=== PATIENT | female | born 1935 | race Caucasian/White ===

== ENCOUNTER 2017-08-22 11:28 | Emergency (ER) | payer MEDICARE, MEDICAID ==
[~2017-08-22] VITALS: Ht 152.4 cm; Wt 74.8 kg
[~2017-08-22 11:28] MED LIST: ACET325T38 PO; ALBU8.5H2 IH; ALMG355B PO; CARV12.53 PO; CYAN100014 PO; FOLI1TAB24 PO; GUAI-613 PO; LISI-597 PO; MAGN-47 PO; MTP25TSR PO; SERT25TA PO
--- OUTSIDE RECORDS SUMMARY | 2017-08-22 11:34 | XMS REPORT ---
Author MICHELLE Barraza Organization [employer] Address Unknown Phone Unavailable Care Team Providers Care Supervisor Reclamation Name Role Phone MICHELLE HERNANDEZ CP Unavailable Allergies No Known Allergies Problems Problem Type Condition ICD-9 Code Onset Dates Condition Status Assessment Depression 311 Active Assessment Hyperlipidemia 272.4 Active Assessment CKD (chronic kidney disease) stage 3, GFR 30-59 ml/min 585.3 Active Problem Hyperlipidemia 272.4 Active Problem CKD (chronic kidney disease) stage 3, GFR 30-59 ml/min 585.3 Active Problem Hypertension 401.9 Active Problem Essential hypertension, benign 401.1 Active Assessment Hypertension 401.9 Active Problem COPD (chronic obstructive pulmonary disease) 496 Active Problem Depression 311 Active Medications No Known Medications Procedures Procedure Coding System Code Date Stable Visit (10 minutes) CPT-4 51641 Jul 12, 2015 Results No Known Results Summary Purpose eClinicalWorks Submission
--- OUTSIDE RECORDS SUMMARY | 2017-08-22 11:34 | XMS REPORT ---
Author Author MICHELLE HERNANDEZ [facility] Address [address] [place] [address] Care Team Providers Care Admissions Director Name Role Phone MICHELLE HERNANDEZ Unavailable PROBLEMS Type Condition ICD9-CM Code PMB39-SY Code Onset Dates Condition Status SNOMED Code Problem Other iron deficiency anemia D50.8 Active 89557288 Problem Hyperlipidemia, unspecified hyperlipidemia type E78.5 Active 28156415 Problem Essential hypertension I10 Active 39708708 Problem Chronic obstructive pulmonary disease, unspecified COPD type J44.9 Active 03024018 Problem CKD (chronic kidney disease) stage 3, GFR 30-59 ml/min N18.3 Active 883645593 Problem Depression F32.9 Active 37751941 ALLERGIES Unknown Allergies SOCIAL HISTORY No smoking Hx information available PLAN OF CARE VITAL SIGNS MEDICATIONS Medication Instructions Dosage Frequency Start Date End Date Duration Status Lisinopril 40 mg Orally Once a day 1 tablet 24h 30 days Active RESULTS No Results PROCEDURES No Known procedures IMMUNIZATIONS No Known Immunizations
--- OUTSIDE RECORDS SUMMARY | 2017-08-22 11:34 | XMS REPORT ---
Author MICHELLE Barraza [facility] [employer] Address Unknown Phone Unavailable Care Team Providers Care Transplant Rn Name Role Phone MICHELLE HERNANDEZ CP Unavailable Allergies No Known Allergies Problems Problem Type Condition Code Onset Dates Condition Status Problem Depression 311 Active Problem CKD (chronic kidney disease) stage 3, GFR 30-59 ml/min 585.3 Active Problem COPD (chronic obstructive pulmonary disease) 496 Active Problem Essential hypertension, benign 401.1 Active Problem Essential hypertension I10 Active Problem Hyperlipidemia, unspecified hyperlipidemia type E78.5 Active Problem Depression F32.9 Active Problem Hypertension 401.9 Active Problem Hyperlipidemia 272.4 Active Problem CKD (chronic kidney disease) stage 3, GFR 30-59 ml/min N18.3 Active Problem Chronic obstructive pulmonary disease, unspecified COPD type J44.9 Active Medications Medication Code System Code Instructions Start Date End Date Status Dosage Tylenol [facility] [address]-49 325 MG Orally every 4 hours 2 tablets as needed Milk of Magnesia [facility] [address]-20 400 MG/5ML Orally Once a day 30 ml as needed Lisinopril [facility] 54846866023 40 MG TAKE 1 TABLET BY MOUTH DAILY Ondansetron HCl [facility] [address]-58 4 MG Orally every 8 hours, PRN 0.5 tablet as needed Folic Acid [facility] [address]-36 1 MG Orally Once a day 1 tablet Michelle-Tussin [facility] [address]-02 100 MG/5ML Orally every 4 hrs 5 ml as needed ProAir HFA [facility] [address]-83 108 (90 Base) MCG/ACT Inhalation every 4 hrs 1 puff as needed Zoloft [facility] [address]-84 50 mg Orally Once a day Jul 03, 2016 1 tablet Oxybutynin Chloride [facility] [address]-83 5 MG Orally Twice a day 1 tablet Metoprolol Succinate ER [facility] 68250185380 50 MG TAKE 1 TABLET BY MOUTH DAILY Prozac [facility] [address]-06 20 mg Orally Once a day February 14, 2016 1 capsule in the morning Mylanta [facility] 96059-[address]36 200-200-20 MG/5ML Orally every 6 hours as needed 10 ml as needed Results No Known Results Summary Purpose eClinicalWorks Submission
--- OUTSIDE RECORDS SUMMARY | 2017-08-22 11:34 | XMS REPORT ---
Author MICHELLE Barraza Organization [employer] Address Unknown Phone Unavailable Care Team Providers Care Lottery Manager Name Role Phone MICHELLE HERNANDEZ CP Unavailable [...] Instructions Start Date End Date Status Dosage Milk of Magnesia [facility] [address]-39 400 MG/5ML Orally Once a day 30 ml as needed Mylanta [facility] [address]27-78147 200-200-20 MG/5ML Orally every 6 hours as needed 10 ml as needed Ondansetron HCl [facility] [address]-73 4 MG Orally every 8 hours, PRN 0.5 tablet as needed Lisinopril [facility] 44801325950 40 MG TAKE 1 TABLET BY MOUTH DAILY Michelle-Tussin [facility] [address]-86 100 MG/5ML Orally every 4 hrs 5 ml as needed Folic Acid [facility] [address]-18 1 MG Orally Once a day 1 tablet Tylenol [facility] [address]-77 325 MG Orally every 4 hours 2 tablets as needed ProAir HFA [facility] [address]-51 108 (90 Base) MCG/ACT Inhalation every 4 hrs 1 puff as needed Metoprolol Succinate ER [facility] 99243161577 50 MG TAKE 1 TABLET BY MOUTH DAILY Prozac [facility] [address]-15 20 mg Orally Once a day February 14, 2016 1 capsule in the morning Results No Known Results Summary Purpose eClinicalWorks Submission
--- OUTSIDE RECORDS SUMMARY | 2017-08-22 11:34 | XMS REPORT ---
Author Author MICHELLE HERNANDEZ Organization [employer] Address Unknown Phone Unavailable Care Team Providers Care Portfolio Architect Name Role Phone MICHELLE HERNANDEZ CP Unavailable Allergies No Known Allergies Problems Problem Type Condition Code Onset Dates Condition Status Problem Depression 311 Active Problem CKD (chronic kidney disease) stage 3, GFR 30-59 ml/min 585.3 Active Problem COPD (chronic obstructive pulmonary disease) 496 Active Problem Essential hypertension I10 Active Problem Hyperlipidemia, unspecified hyperlipidemia type E78.5 Active Problem Depression F32.9 Active Problem Hypertension 401.9 Active Problem Hyperlipidemia 272.4 Active Problem CKD (chronic kidney disease) stage 3, GFR 30-59 ml/min N18.3 Active Problem Chronic obstructive pulmonary disease, unspecified COPD type J44.9 Active Assessment Hyperlipidemia, unspecified hyperlipidemia type E78.5 Active Assessment Essential hypertension I10 Active Assessment Chronic obstructive pulmonary disease, unspecified COPD type J44.9 Active Assessment Depression F32.9 Active Assessment CKD (chronic kidney disease) stage 3, GFR 30-59 ml/min N18.3 Active Problem Essential hypertension, benign 401.1 Active Medications No Known Medications Procedures Procedure Coding System Code Date Stable Visit (10 minutes) CPT-4 75582 Nov 08, 2015 Results No Known Results Summary Purpose eClinicalWorks Submission
--- OUTSIDE RECORDS SUMMARY | 2017-08-22 11:34 | XMS REPORT ---
Author Author MICHELLE HERNANDEZ [facility] Address [address] [place] [address] Care Team Providers Care Electronics Manufacturer Name Role Phone MICHELLE HERNANDEZ Unavailable PROBLEMS Type Condition ICD9-CM Code LNV41-HA Code Onset Dates Condition Status SNOMED Code Problem COPD (chronic obstructive pulmonary disease) 496 Active 83391662 Problem Hyperlipidemia 272.4 Active 78782404 Problem CKD (chronic kidney disease) stage 3, GFR 30-59 ml/min 585.3 Active 023183766 Assessment Adjustment disorder with depressed mood F43.21 Jul, Active 574348329 Problem Essential hypertension, benign 401.1 Active 7158211 Problem Depression 311 Active 88738866 Problem Depression F32.9 Active 10652232 Problem Essential hypertension I10 Active 97333152 Problem Chronic obstructive pulmonary disease, unspecified COPD type J44.9 Active 99427101 Problem Hypertension 401.9 Active 81322318 Problem Hyperlipidemia, unspecified hyperlipidemia type E78.5 Active 31248078 Problem CKD (chronic kidney disease) stage 3, GFR 30-59 ml/min N18.3 Active 945784930 ALLERGIES Unknown Allergies SOCIAL HISTORY No smoking Hx information available PLAN OF CARE VITAL SIGNS MEDICATIONS Medication Instructions Dosage Frequency Start Date End Date Duration Status Lisinopril 40 MG TAKE 1 TABLET BY MOUTH DAILY 30 Active Zoloft 50 mg Orally Once a day 1 tablet 24h Jul, Active Ondansetron HCl 4 MG Orally every 8 hours, PRN 0.5 tablet as needed Active Folic Acid 1 MG Orally Once a day 1 tablet 24h Active Tylenol 325 MG Orally every 4 hours 2 tablets as needed 4h Active Metoprolol Succinate ER 50 MG TAKE 1 TABLET BY MOUTH DAILY 30 Active ProAir HFA 108 (90 Base) MCG/ACT Inhalation every 4 hrs 1 puff as needed 4h Active Mylanta 200-200-20 MG/5ML Orally every 6 hours as needed 10 ml as needed Active Prozac 20 mg Orally Once a day 1 capsule in the morning 24h Jan, Active Milk of Magnesia 400 MG/5ML Orally Once a day 30 ml as needed 24h Active Michelle-Tussin 100 MG/5ML Orally every 4 hrs 5 ml as needed 4h Active RESULTS No Results PROCEDURES Procedure Date Ordered Related Diagnosis Body Site [facility] VISIT ESTABLISHED PATIENT Jul 03, 2016 Office Visit, Est Pt., Level 3 Jul 03, 2016 IMMUNIZATIONS No Known Immunizations
--- OUTSIDE RECORDS SUMMARY | 2017-08-22 11:34 | XMS REPORT ---
Author MICHELLE Barraza Organization [employer] Address Unknown Phone Unavailable Care Team Providers Care Online Program Coordinator Name Role Phone MICHELLE HERNANDEZ CP Unavailable [...] Instructions Start Date End Date Status Dosage Cyanocobalamin [facility] [address]-76 1000 MCG Orally Once a day [address] [facility] [address]-27 1 MG Orally Once a day [address] [facility] 56668-[address]3 200-200-20 MG/5ML Orally Four times a day 10 ml as needed ProAir HFA [facility] [address]-29 108 (90 Base) MCG/ACT Inhalation every 4 hrs 1 puff as needed Michelle-Tussin [facility] [address]-48 100 MG/5ML Orally every 4 hrs 5 ml as needed Metoprolol Succinate ER [facility] [address]-54 50 MG Orally Once a day [address] [facility] [address]-16 4 MG Orally 3 times a day 0.5 tablet as needed Tylenol [facility] [address]-68 325 MG Orally every 4 hours 2 tablets as needed Milk of Magnesia [facility] [address]-07 400 MG/5ML Orally Once a day 30 ml as needed Prozac [facility] [address]-87 20 mg Orally Once a day February 14, 2016 1 capsule in the morning Lisinopril [facility] [address]-13 40 MG Orally Once a day 1 tablet Results No Known Results Summary Purpose eClinicalWorks Submission
--- OUTSIDE RECORDS SUMMARY | 2017-08-22 11:34 | XMS REPORT ---
Author MICHELLE Barraza Organization [employer] Address Unknown Phone Unavailable Care Team Providers Care Form Grader Name Role Phone MICHELLE HERNANDEZ CP Unavailable [...] Instructions Start Date End Date Status Dosage Zoloft [facility] [address]-90 100 MG Orally Once a day Jul 03, 2016 1 tablet Results No Known Results Summary Purpose eClinicalWorks Submission
--- OUTSIDE RECORDS SUMMARY | 2017-08-22 11:34 | XMS REPORT ---
Author Author MICHELLE HERNANDEZ Organization [employer] Address Unknown Phone Unavailable Care Team Providers Care Equipment Maintenance Tech Name Role Phone MICHELLE HERNANDEZ CP Unavailable Allergies No Known Allergies Problems Problem Type Condition Code Onset Dates Condition Status Problem Hyperlipidemia 272.4 Active Problem CKD (chronic kidney disease) stage 3, GFR 30-59 ml/min 585.3 Active Problem Hypertension 401.9 Active Problem Essential hypertension, benign 401.1 Active Assessment CKD (chronic kidney disease), stage 3 (moderate) N18.3 Active Problem COPD (chronic obstructive pulmonary disease) 496 Active Problem Depression 311 Active Medications No Known Medications Procedures Procedure Coding System Code Date Stable Visit (10 minutes) CPT-4 95808 Sep 13, 2015 Results No Known Results Summary Purpose eClinicalWorks Submission
--- OUTSIDE RECORDS SUMMARY | 2017-08-22 11:35 | XMS REPORT ---
Author Author MICHELLE HERNANDEZ [facility] Address [address] [place] [address] Care Team Providers Care Laundry Machine Operator Name Role Phone MICHELLE HERNANDEZ Unavailable PROBLEMS Type Condition ICD9-CM Code [id number] Code Onset Dates Condition Status SNOMED Code Problem Other iron deficiency anemia D50.8 Active 83671314 Problem Hyperlipidemia, unspecified hyperlipidemia type E78.5 Active 71228630 Problem Essential hypertension I10 Active 74450895 Problem Chronic obstructive pulmonary disease, unspecified COPD type J44.9 Active 51465809 Problem CKD (chronic kidney disease) stage 3, GFR 30-59 ml/min N18.3 Active 360959754 Problem Depression F32.9 Active 60122771 ALLERGIES Unknown Allergies SOCIAL HISTORY No smoking Hx information available PLAN OF CARE Activity Details Follow Up 2 Months Reason: VITAL SIGNS MEDICATIONS No Known Medications RESULTS No Results PROCEDURES Procedure Date Ordered Related Diagnosis Body Site Minor complication (15 mins) Dec 26, 2016 IMMUNIZATIONS No Known Immunizations
--- OUTSIDE RECORDS SUMMARY | 2017-08-22 11:35 | XMS REPORT ---
Author Author MICHELLE HERNANDEZ [facility] Address [address] [place] [address] Care Team Providers Care Search Coordinator Name Role Phone MICHELLE HERNANDEZ Unavailable PROBLEMS Type Condition ICD9-CM Code ZMD15-RK Code Onset Dates Condition Status SNOMED Code Problem Other iron deficiency anemia D50.8 Active 08318467 Problem Hyperlipidemia, unspecified hyperlipidemia type E78.5 Active 45935144 Problem Essential hypertension I10 Active 92712793 Problem Chronic obstructive pulmonary disease, unspecified COPD type J44.9 Active 45795099 Problem CKD (chronic kidney disease) stage 3, GFR 30-59 ml/min N18.3 Active 202597989 Problem Depression F32.9 Active 27161951 ALLERGIES Unknown Allergies SOCIAL HISTORY No smoking Hx information available PLAN OF CARE VITAL SIGNS MEDICATIONS Medication Instructions Dosage Frequency Start Date End Date Duration Status Zoloft 100 mg Orally Once a day 1 1/2 tablets 24h Jul, 30 days Active RESULTS No Results PROCEDURES No Known procedures IMMUNIZATIONS No Known Immunizations
--- OUTSIDE RECORDS SUMMARY | 2017-08-22 11:35 | XMS REPORT ---
Author Author MICHELLE HERNANDEZ Organization [facility] Address [address] [place] [address] Care Team Providers Care Porcelain Technician Name Role Phone MICHELLE HERNANDEZ Unavailable PROBLEMS Type Condition ICD9-CM Code GTV82-PQ Code Onset Dates Condition Status SNOMED Code Problem COPD (chronic obstructive pulmonary disease) 496 Active 15500903 Problem Hyperlipidemia 272.4 Active 80868900 Problem CKD (chronic kidney disease) stage 3, GFR 30-59 ml/min 585.3 Active 471958203 Problem Essential hypertension, benign 401.1 Active 4024407 Problem Depression 311 Active 30803840 Problem Depression F32.9 Active 07198805 Problem Essential hypertension I10 Active 45527207 Problem Chronic obstructive pulmonary disease, unspecified COPD type J44.9 Active 87389921 Problem Hypertension 401.9 Active 28716149 Problem Hyperlipidemia, unspecified hyperlipidemia type E78.5 Active 53267182 Problem CKD (chronic kidney disease) stage 3, GFR 30-59 ml/min N18.3 Active 264089602 ALLERGIES Unknown Allergies SOCIAL HISTORY No smoking Hx information available PLAN OF CARE VITAL SIGNS MEDICATIONS Medication Instructions Dosage Frequency Start Date End Date Duration Status Zoloft 100 MG Orally Once a day 1 1/2 tablets 24h Jul, 30 days Active Amlodipine Besylate 10 mg Orally Once a day 1 tablet 24h Aug, 30 day(s) Active RESULTS No Results PROCEDURES No Known procedures IMMUNIZATIONS No Known Immunizations
--- OUTSIDE RECORDS SUMMARY | 2017-08-22 11:35 | XMS REPORT ---
Author MICHELLE Barraza Organization [employer] Address Unknown Phone Unavailable Care Team Providers Care Paint Spray Tender Name Role Phone MICHELLE HERNANDEZ CP Unavailable [...] disease, unspecified COPD type J44.9 Active Medications No Known Medications Results No Known Results Summary Purpose eClinicalWorks Submission
--- OUTSIDE RECORDS SUMMARY | 2017-08-22 11:35 | XMS REPORT ---
Author Author MICHELLE HERNANDEZ [facility] Address [address] [place] [address] Care Team Providers Care Bag Maker Name Role Phone MICHELLE HERNANDEZ Unavailable PROBLEMS Type Condition ICD9-CM Code XEE35-OP Code Onset Dates Condition Status SNOMED Code Problem COPD (chronic obstructive pulmonary disease) 496 Active 99048407 Problem Hyperlipidemia 272.4 Active 16292091 Problem CKD (chronic kidney disease) stage 3, GFR 30-59 ml/min 585.3 Active 061319450 Problem Essential hypertension, benign 401.1 Active 5771333 Problem Depression 311 Active 33627031 Problem Depression F32.9 Active 97842834 Problem Essential hypertension I10 Active 86748989 Problem Chronic obstructive pulmonary disease, unspecified COPD type J44.9 Active 70008880 Problem Hypertension 401.9 Active 07567193 Problem Hyperlipidemia, unspecified hyperlipidemia type E78.5 Active 99012335 Problem CKD (chronic kidney disease) stage 3, GFR 30-59 ml/min N18.3 Active 276203238 ALLERGIES Unknown Allergies SOCIAL HISTORY No smoking Hx information available PLAN OF CARE VITAL SIGNS MEDICATIONS Unknown Medications RESULTS No Results PROCEDURES No Known procedures IMMUNIZATIONS No Known Immunizations
--- OUTSIDE RECORDS SUMMARY | 2017-08-22 11:35 | XMS REPORT ---
Author MICHELLE Barraza Organization [employer] Address Unknown Phone Unavailable Care Team Providers Care Dermatology Procedural Physician Name Role Phone MICHELLE HERNANDEZ CP Unavailable Allergies No Known Allergies Problems Problem Type Condition Code Onset Dates Condition Status Problem Depression 311 Active Problem CKD (chronic kidney disease) stage 3, GFR 30-59 ml/min 585.3 Active Problem COPD (chronic obstructive pulmonary disease) 496 Active Assessment Acute viral conjunctivitis of both eyes B30.9 Active Problem Essential hypertension, benign 401.1 Active Problem Essential hypertension I10 Active Problem Hyperlipidemia, unspecified hyperlipidemia type E78.5 Active Problem Depression F32.9 Active Problem Hypertension 401.9 Active Problem Hyperlipidemia 272.4 Active Problem CKD (chronic kidney disease) stage 3, GFR 30-59 ml/min N18.3 Active Problem Chronic obstructive pulmonary disease, unspecified COPD type J44.9 Active Medications No Known Medications Procedures Procedure Coding System Code Date Stable Visit (10 minutes) CPT-4 76571 Oct 09, 2016 Results No Known Results Summary Purpose eClinicalWorks Submission
--- OUTSIDE RECORDS SUMMARY | 2017-08-22 11:35 | XMS REPORT ---
Author MICHELLE Barraza Organization [employer] Address Unknown Phone Unavailable Care Team Providers Care Patient Service Specialist Name Role Phone MICHELLE HERNANDEZ CP Unavailable [...] Instructions Start Date End Date Status Dosage Visine-A [facility] [address]-75 0.025-0.3 % Ophthalmic 3 times a day Sep 18, 2016 Sep 25, 2016 2 drops into both eyes Results No Known Results Summary Purpose eClinicalWorks Submission
--- OUTSIDE RECORDS SUMMARY | 2017-08-22 11:35 | XMS REPORT ---
Author Author MICHELLE HERNANDEZ [facility] Address [address] [place] [address] Care Team Providers Care Digital Account Coordinator Name Role Phone MICHELLE HERNANDEZ Unavailable PROBLEMS Type Condition ICD9-CM Code PDA36-LQ Code Onset Dates Condition Status SNOMED Code Problem COPD (chronic obstructive pulmonary disease) 496 Active 41900009 Problem Hyperlipidemia 272.4 Active 58292520 Problem CKD (chronic kidney disease) stage 3, GFR 30-59 ml/min 585.3 Active 259959881 Problem Essential hypertension, benign 401.1 Active 6963065 Problem Depression 311 Active 03509300 Problem Depression F32.9 Active 02518625 Problem Essential hypertension I10 Active 41873770 Problem Chronic obstructive pulmonary disease, unspecified COPD type J44.9 Active 46618519 Problem Hypertension 401.9 Active 90998118 Problem Hyperlipidemia, unspecified hyperlipidemia type E78.5 Active 88106041 Problem CKD (chronic kidney disease) stage 3, GFR 30-59 ml/min N18.3 Active 159188302 ALLERGIES Unknown Allergies SOCIAL HISTORY No smoking Hx information available PLAN OF CARE VITAL SIGNS MEDICATIONS Unknown Medications RESULTS No Results PROCEDURES No Known procedures IMMUNIZATIONS No Known Immunizations
--- OUTSIDE RECORDS SUMMARY | 2017-08-22 11:35 | XMS REPORT ---
Author MICHELLE Barraza Organization [employer] Address Unknown Phone Unavailable Care Team Providers Care Casino Controller Name Role Phone MICHELLE HERNANDEZ CP Unavailable Allergies No Known Allergies Problems Problem Type Condition Code Onset Dates Condition Status Problem Depression 311 Active Problem CKD (chronic kidney disease) stage 3, GFR 30-59 ml/min 585.3 Active Problem COPD (chronic obstructive pulmonary disease) 496 Active Assessment Pneumonia due to infectious organism, unspecified laterality, unspecified part of lung J18.9 Active Problem Essential hypertension, benign 401.1 Active Problem Essential hypertension I10 Active Problem Hyperlipidemia, unspecified hyperlipidemia type E78.5 Active Problem Depression F32.9 Active Problem Hypertension 401.9 Active Problem Hyperlipidemia 272.4 Active Problem CKD (chronic kidney disease) stage 3, GFR 30-59 ml/min N18.3 Active Problem Chronic obstructive pulmonary disease, unspecified COPD type J44.9 Active Medications No Known Medications Procedures Procedure Coding System Code Date Minor complication (15 mins) CPT-4 12595 Aug 21, 2016 Results No Known Results Summary Purpose eClinicalWorks Submission
--- OUTSIDE RECORDS SUMMARY | 2017-08-22 11:35 | XMS REPORT ---
Author Author MICHELLE HERNANDEZ Organization [employer] Address Unknown Phone Unavailable Care Team Providers Care Core Machine Tender Name Role Phone MICHELLE HERNANDEZ CP Unavailable Allergies No Known Allergies Problems Problem Type Condition ICD-9 Code Onset Dates Condition Status Problem Hyperlipidemia 272.4 Active Problem CKD (chronic kidney disease) stage 3, GFR 30-59 ml/min 585.3 Active Problem Hypertension 401.9 Active Problem Essential hypertension, benign 401.1 Active Problem COPD (chronic obstructive pulmonary disease) 496 Active Problem Depression 311 Active Medications Medication Code System Code Instructions Start Date End Date Status Dosage Bactrim DS [facility] [address]-01 800-160 MG Orally 2 times a day Aug 25, 2015 Aug 30, 2015 1 tablet Results No Known Results Summary Purpose eClinicalWorks Submission
--- OUTSIDE RECORDS SUMMARY | 2017-08-22 11:35 | XMS REPORT ---
Author MICHELLE Barraza Organization [employer] Address Unknown Phone Unavailable Care Team Providers Care Radiochemical Technician Name Role Phone MICHELLE HERNANDEZ CP Unavailable [...] disease, unspecified COPD type J44.9 Active Assessment Pneumonia due to infectious organism, unspecified laterality, unspecified part of lung J18.9 Active Assessment Essential hypertension I10 Active Problem Essential hypertension, benign 401.1 Active Medications No Known Medications Procedures Procedure Coding System Code Date Stable Visit (10 minutes) CPT-4 44887 Sep 11, 2016 Results No Known Results Summary Purpose eClinicalWorks Submission
--- NOTE | 2017-08-22 11:53 | ED General ---
General Stated Complaint: LOW HEMOGLOBIN PER DR Source of Information: Patient Exam Limitations: No Limitations History of Present Illness Time Seen by Provider: 11:48 Initial Comments to ER from assisted with reports of low hemoglobin. This was found incidentally on routine labs drawn this morning. These labs were ordered by Shaun Rhodes from [facility]. prison called him and he advised to have her transported to the emergency room. However, the patient is entirely asymptomatic smiling, laughing and joking with us without any apparent shortness of breath and with stable vital signs. As mentioned she has chronic kidney disease with a creatinine of 2.3 and a GFR of 21, BUN 27. These labs were drawn macula this morning and her faxed to us. Her sodium was 141 and her potassium 4.5. Her hemoglobin this morning is 6.9 on August 11 it was only 7. Bleeding clear back to January of this year it was only 8. Allergies and Home Medications Allergies Coded Allergies: tetanus & diphtheria toxoids (Verified Allergy, Unknown, 04/04/15) Home Medications Acetaminophen 325 Mg Tablet, 650 MG PO Q4H PRN for MILD PAIN, (Reported) TAKES 2 (325MG) TABLETS Al Hydroxide/Mg Hydroxide 30 Ml Susp, 10 ML PO Q6H PRN for HEARTBURN, (Reported) Albuterol 8.5 Gm Hfa.aer.ad, 1 PUFF IH RTQ4HR PRN for WHEEZING, #1 Ref 1 1 PUFFS Prescribed by: PARKER GUILLEN on 04/05/15 1450 Cyanocobalamin 1,000 Mcg Tablet, 1,000 MCG PO DAILY, (Reported) Folic Acid 1 Mg Tablet, 1 MG PO DAILY, (Reported) Guaifenesin 100 Mg/5 Ml Liquid, 100 MG PO Q4H PRN for COUGH, (Reported) Lisinopril 40 Mg Tablet, 40 MG PO DAILY, (Reported) Magnesium Hydroxide 400 Mg/5 Ml Oral.susp, 30 ML PO DAILY PRN for CONSTIPATION, (Reported) Metoprolol Succinate 25 Mg Tab, 25 MG PO DAILY, #30 Ref 1 Prescribed by: PARKER GUILLEN on 04/05/15 1439 Sertraline Hcl 25 Mg Tablet, 50 MG PO DAILY, (Reported) Constitutional: see HPI EENTM: see HPI Respiratory: no symptoms reported Cardiovascular: no symptoms reported Genitourinary: no symptoms reported Musculoskeletal: no symptoms reported Skin: no symptoms reported Psychiatric/Neurological: No Symptoms Reported Hematologic/Lymphatic: No Symptoms Reported Past Asoabrb-Nhtjor-Gbviax Hx Patient Social History Recent Foreign Travel: No Contact w/Someone Who Travel: No Seasonal Allergies Seasonal Allergies: No Respiratory Respiratory Disorders: COPD Cardiovascular Cardiac Disorders: Chronic Edema/Swelling, Hypertension Reproductive System CLOTHING CONSULTANT History: Menopausal Genitourinary Genitourinary Disorders: Renal Failure, UTI-Chronic Musculoskeletal Musculoskeletal Disorders: Arthritis HEENT Hearing Impairment: Hard of Hearing Psychosocial Behavioral Health Disorders: Depression Blood Transfusions Adverse Reaction to a Blood Tr: No Physical Exam Vital Signs Capillary Refill : General Appearance: No Apparent Distress, WD/WN, Other (pleasantly confused but no distress) Respiratory: No Accessory Muscle Use, No Respiratory Distress Gastrointestinal: Non Tender, Soft Extremity: Normal Capillary Refill, Normal Inspection Neurologic/Psychiatric: Alert, Oriented x3, No Motor/Sensory Deficits Skin: Normal Color, Warm/Dry Progress/Results/Core Measures Results/Orders My Orders Orders - IDA CANNON APRN Cbc With Automated Diff (08/22/17 11:33) Comprehensive Metabolic Panel (08/22/17 11:33) Saline Lock/Iv-Start (08/22/17 11:33) Type And Screen (08/22/17 11:33) Red Cells Leukocytes Reduced (08/22/17 11:33) Departure Communication (Admissions) Progress Notes I discussed the case with Dr. Kendall who is on-call for [facility]. He recommends withholding blood products given the patient's elderly age and frailty with renal failure the risk of fluid overload and pulmonary edema after blood transfusion is significant. Patient is asymptomatic with her chronically low hemoglobin. We will discharge back to the assisted for repeat lab draw tomorrow. Impression Impression: Primary Impression: Anemia Additional Impressions: asymptomatic anemia Chronic kidney disease Disposition: SNF Condition: Stable Departure-Patient Inst. Decision time for Depature: 11:52 Referrals: HERMILO TOMPKINS MD (PCP/Family) Primary Care Physician Patient Instructions: Anemia of Chronic Disease Add. Discharge Instructions: 1. We should recheck her hemoglobin tomorrow 2. Since she is asymptomatic with her low hemoglobin and she is 82 years old there is a risk of fluid overload and pulmonary edema with blood transfusion. The risks of transfusing her blood outweigh the benefits since she is asymptomatic. I have written an order to have blood drawn again tomorrow morning for repeat CBC only. You should call these results to Dr. Kendall who is on-call for [facility] this weekend. IDA CANNON APRN Aug 22, 2017 11:53
[2017-08-22 11:56] LABS: BASOPHILS # (AUTO) 0.1 10^3/uL (0.0-0.1); BASOPHILS % (AUTO) 1 % (0-10); EOSINOPHILS # (AUTO) 0.5 10^3/uL (0.0-0.3); EOSINOPHILS % (AUTO) 5 % (0-10); LYMPHOCYTES % (AUTO) 30 % (12-44); MEAN CORPUSCULAR HEMOGLOBIN 26 PG (25-34); MEAN CORPUSCULAR HGB CONC 31 G/DL (32-36); MEAN CORPUSCULAR VOLUME 83 FL (80-99); MONOCYTES % (AUTO) 10 % (0-12); NEUTROPHILS # (AUTO) 5.5 X 10^3 (1.8-7.8); NEUTROPHILS % (AUTO) 55 % (42-75); PLATELET COUNT 352 10^3/uL (130-400); RED BLOOD COUNT 3.01 10^6/uL (4.35-5.85); RED CELL DISTRIBUTION WIDTH 17.9 % (10.0-14.5); WHITE BLOOD COUNT 10.1 10^3/uL (4.3-11.0)
[2017-08-22 12:14] LABS: ALBUMIN 3.3 GM/DL (3.2-4.5); BILIRUBIN,TOTAL 0.3 MG/DL (0.1-1.0); CALCIUM 9.7 MG/DL (8.5-10.1); CREATININE SERUM 2.68 MG/DL (0.60-1.30); POTASSIUM 4.5 MMOL/L (3.6-5.0); TOTAL PROTEIN 6.9 GM/DL (6.4-8.2)
[2017-08-22 12:30] VITALS: BP 126/84
== END 2017-08-22 12:30 ==
LOC: EDUNIT# 11:28 → ER 11:30
DX: D64.9 Anemia, unspecified (principal); I12.9 Hypertensive chronic kidney disease with stage 1 through stage 4 chronic kidney disease, or unspecified chronic kidney disease; N18.9 Chronic kidney disease, unspecified; F32.9 Major depressive disorder, single episode, unspecified; J44.9 Chronic obstructive pulmonary disease, unspecified
CPT/HCPCS: 36415; 80053; 85025; 86850; 86900; 86901; 86920

== ENCOUNTER → 2017-08-23 | Outpatient (CLI) | payer MEDICARE, MEDICAID ==
[2017-08-23 10:15] LABS: BASOPHILS # (AUTO) 0.1 10^3/uL (0.0-0.1); BASOPHILS % (AUTO) 1 % (0-10); EOSINOPHILS # (AUTO) 0.5 10^3/uL (0.0-0.3); EOSINOPHILS % (AUTO) 5 % (0-10); LYMPHOCYTES # (AUTO) 2.9 X 10^3 (1.0-4.0); LYMPHOCYTES % (AUTO) 30 % (12-44); MEAN CORPUSCULAR HEMOGLOBIN 26 PG (25-34); MEAN CORPUSCULAR HGB CONC 31 G/DL (32-36); MEAN CORPUSCULAR VOLUME 84 FL (80-99); MEAN PLATELET VOLUME 9.3 FL (7.4-10.4); MONOCYTES # (AUTO) 0.7 X 10^3 (0.0-1.0); MONOCYTES % (AUTO) 7 % (0-12); NEUTROPHILS # (AUTO) 5.7 X 10^3 (1.8-7.8); NEUTROPHILS % (AUTO) 58 % (42-75); PLATELET COUNT 326 10^3/uL (130-400); RED BLOOD COUNT 2.95 10^6/uL (4.35-5.85); RED CELL DISTRIBUTION WIDTH 17.9 % (10.0-14.5); WHITE BLOOD COUNT 9.8 10^3/uL (4.3-11.0)
[2017-08-23 10:37] LABS: ANISOCYTOSIS SLIGHT; BAND NEUTROPHILS 1 %; EOSINOPHILS % (MANUAL) 8 %; LYMPHOCYTES % (MANUAL) 27 %; NEUTROPHILS % (MANUAL) 56 %
[2017-08-23 10:49] LABS: TEAR DROP CELLS SLIGHT
== END ==
PROVIDERS: ATTEND Internal Medicine
DX: D64.9 Anemia, unspecified (principal)
CPT/HCPCS: 85007; 85027

== ENCOUNTER → 2017-09-01 | Outpatient (CLI) | payer MEDICARE, MEDICAID ==
--- NOTE | 2017-09-01 13:23 | Diagnostic Imaging Report ---
EXAMINATION: Right renal ultrasound. INDICATION: Stage IV chronic renal disease. FINDINGS: The right kidney is 10.4 cm and the left kidney is 9.5 cm in length. There is no hydronephrosis seen. 1.8 cm mid left renal cyst is noted with simple appearance and no solid component. There is increased echogenicity of the renal cortex compatible with chronic parenchymal renal disease. The urinary bladder appears unremarkable. IMPRESSION: No hydronephrosis. Dictated by: Dictated on workstation # [id number]
== END ==
LOC: RAD 12:28
PROVIDERS: ATTEND Internal Medicine Nephrology
DX: I12.9 Hypertensive chronic kidney disease with stage 1 through stage 4 chronic kidney disease, or unspecified chronic kidney disease (principal); N18.4 Chronic kidney disease, stage 4 (severe); D64.9 Anemia, unspecified
CPT/HCPCS: 76770